=== PATIENT | female | born 1950 | race Caucasian/White ===

== ENCOUNTER 2017-06-08 08:58 | Outpatient (CLI) | payer OTHER | END 2017-06-08 09:07 | disposition home or self-care (01) | LOC: SONOGRAMA 08:58 | DX: E04.2 Nontoxic multinodular goiter (principal) ==

== ENCOUNTER 2021-08-07 09:04 | Outpatient (CLI) | payer OTHER | END 2021-08-07 09:11 | disposition home or self-care (01) | LOC: SONOGRAMA 09:04 | PROVIDERS: ATTEND Pathology Anatomic Pathology & Clinical Pathology | DX: E04.8 Other specified nontoxic goiter (principal) ==

== ENCOUNTER 2023-07-26 10:03 | Outpatient (CLI) | payer OTHER | END 2023-07-26 10:15 | disposition home or self-care (01) | LOC: SONOGRAMA 10:03 | PROVIDERS: ATTEND Pathology Anatomic Pathology & Clinical Pathology | DX: D34 Benign neoplasm of thyroid gland (principal); E07.89 Other specified disorders of thyroid; E03.8 Other specified hypothyroidism ==

== ENCOUNTER 2024-10-19 08:05 | Outpatient (CLI) | payer OTHER | END 2024-10-19 08:08 | disposition home or self-care (01) | LOC: SONOGRAMA 08:05 | PROVIDERS: ATTEND Pathology Anatomic Pathology & Clinical Pathology | DX: D34 Benign neoplasm of thyroid gland (principal); E07.89 Other specified disorders of thyroid; E04.2 Nontoxic multinodular goiter ==